=== PATIENT | female | born 1965 | race Caucasian/White ===

== ENCOUNTER → 2016-12-31 | Outpatient (CLI) | payer OTHER, MEDICAID | LOC: BMCIMAGING 09:11 | PROVIDERS: ATTEND Registered Nurse General Practice | DX: M54.6 Pain in thoracic spine (principal); M43.14 Spondylolisthesis, thoracic region; M54.2 Cervicalgia ==

== ENCOUNTER → 2017-06-05 | Outpatient (CLI) | payer OTHER, MEDICAID | LOC: BMCIMAGING 12:44 | PROVIDERS: ATTEND Registered Nurse General Practice | DX: Z12.31 Encounter for screening mammogram for malignant neoplasm of breast (principal) | CPT/HCPCS: G0202 ==

== ENCOUNTER 2017-11-07 07:08 | Inpatient (IN) | payer OTHER, MEDICAID ==
[2017-11-07] MEDS ORDERED: NS 1,000 ML IV ONE ×3 (07:16→14:19)
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
[2017-11-07] MEDS ORDERED: IOPAMIDOL (ISOVUE-300) 100 ML BTL ONE (07:20)
[2017-11-07 07:53] LABS: PLATELET COUNT 115 10^3/uL (150-400)
[2017-11-07 08:07] LABS: PROTIME(PATIENT) 13.4 SEC (12.0-15.0)
[2017-11-07] MEDS ORDERED: LORazepam 2 MG/ML INJ IVP ONE (08:09)
[2017-11-07] MEDS ORDERED: ceFAZolin 2 GM/DEXTROSE 100 ML IV ONE (09:00)
[2017-11-07] MEDS ORDERED: MANNITOL 25% 12.5 GM/50 ML VIAL IVP ONE (09:10)
--- NOTE | 2017-11-07 09:10 | CPEKG ---
Heart Rate: 102 RR Interval: 588 P-R Interval: 208 QRSD Interval: 74 QT Interval: 400 QTC Interval: 522 P [place]: 2 QRS [place]: 55 T Wave [place]: 78 EKG Severity - ABNORMAL ECG - EKG Impression: SINUS TACHYCARDIA EKG Impression: FIRST DEGREE AV BLOCK EKG Impression: PROLONGED QT INTERVAL Electronically Signed By: Nathan Phelps 07-Nov-2017 15:47:05
[2017-11-07] MEDS ORDERED: levETIRAcetam 1000MG/NACL 100 ML IV ONE (09:12)
[2017-11-07] MEDS ORDERED: ONDANSETRON 4 MG/2 ML VIAL IVP ONE (09:12)
[2017-11-07] MEDS ORDERED: PANTOPRAZOLE SODIUM 40 MG VIAL IVP ONE (09:13)
[2017-11-07] MEDS ORDERED: THROMBIN (BOVINE) 5,000 UNIT VIAL TP ONE (09:14)
[2017-11-07] MEDS ORDERED: MANNITOL 20% 100 GM/500 ML BAG IV ONE (09:14)
[2017-11-07] MEDS ORDERED: BUPIVACAINE 0.25% 30 ML SDV ONE (09:14)
[2017-11-07] MEDS ORDERED: GENTAMICIN SULFATE 80 MG/2 ML VIAL ONE ×2 (09:14→09:15)
[2017-11-07] MEDS ORDERED: CHLORHEXIDINE GLUC HIBICLENS 118 ML BTL TP ONE (09:15)
[2017-11-07] MEDS ORDERED: TDAP ADULT 0.5 ML INJ (BOOSTRIX) IM ONE (09:15)
[2017-11-07] MEDS ORDERED: PROPOFOL/EMULSION 500 MG/50 ML BOTTLE IV ONE ×3 (09:18→11:52)
[2017-11-07] MEDS ORDERED: THROMBIN (BOVINE) 20,000 UNIT VIAL TP ONE (09:23)
[2017-11-07] MEDS ORDERED: TRANEXAMIC ACID 1,000 MG in NS 500 ML IV ONE (09:24)
[2017-11-07] MEDS ORDERED: TRANEXAMIC ACID 1,000 MG in NS 100 ML IV ONE (09:24)
[2017-11-07] MEDS ORDERED: fentaNYL 100 MCG/2 ML INJ ONE (09:29)
[2017-11-07] MEDS ORDERED: ceFAZolin 2 GM/SWFI 2 GM/20 ML SYR IVP ONE (09:30)
[2017-11-07] MEDS ORDERED: SURGIFLO MATRIX KIT WITH THROMBIN 8ml TP ONE (09:44)
[2017-11-07] MEDS ORDERED: PHENYLEPHRINE HCL 100 MCG/ML SYR ONE (09:52)
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
--- NOTE | 2017-11-07 10:21 | PDANEPAE ---
ANE History of Present Illness 52 year old female found down with high blood EtoH level, subdural hematoma. ANE Past Medical History - Cardiovascular History Hx Hypertension: Yes - Pulmonary History Pulmonary History Comment: unknown ANE Review of Systems Review of Systems: ANE Patient History - Allergies Allergies/Adverse Reactions: erythromycin base [Erythromycin Base] Allergy (Verified 03/15/10 13:03) - Home Medications Home medications: home medication list seen and reviewed Home Medications: NK [No Known Home Meds] 11/07/17 [Last Taken Unknown] - NPO status NPO Status: no food or drink >8 hours - Anes Hx Anes Hx: no prior problems - Smoking Hx Smoking Status: Unknown if ever smoked Marijuana use: No - Alcohol Use Alcohol Use: None - Family Anes Hx Family Anes Hx: neg - N/A ANE Labs/Vital Signs - Labs Result Diagrams: 11/07/17 07:35 11/07/17 07:35 - Vital Signs Vital Signs: reviewed preoperatively; see RN documention for details Blood Pressure: 94/56 Heart Rate: 90 Respiratory Rate: 16 O2 Sat (%): 95 Height: 154.94 cm Weight: 65.771 kg ANE Physical Exam - ASA Status ASA Status: IV, E ANE Anesthesia Plan Anesthesia Plan: general endotracheal anesthesia Lines/Monitors: arterial line Total IV Anesthesia: No Urgent/Emergent Case: David alexander completed preop but documented later for safe timely pt care (This evaluation performed after the case as surgical intervention was emergent.)
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
[2017-11-07] MEDS ORDERED: BACITRACIN ZINC 14.2 GM OINTTUBE TP ONE (10:39)
[2017-11-07] MEDS ORDERED: MAGNESIUM HYDROXIDE 30 ML UDCUP PO PRN (11:54)
[2017-11-07] MEDS ORDERED: ONDANSETRON 4 MG/2 ML VIAL IVP PRN (11:54)
[2017-11-07] MEDS ORDERED: LACTULOSE 20 GM/30 ML UDCUP PO PRN (11:54)
[2017-11-07] MEDS ORDERED: niCARdipine/NACL 200 ML IV PRN (11:54)
[2017-11-07] MEDS ORDERED: ACETAMINOPHEN 325 MG TAB PO PRN (11:54)
[2017-11-07] MEDS ORDERED: BISACODYL 10 MG SUPP PR PRN (11:54)
[2017-11-07] MEDS ORDERED: POLYETHYLENE GLYCOL 3350 17 GM PKT PO PRN (11:54)
[2017-11-07] MEDS ORDERED: NS W/ 20 KCl/L 1,000 ML IV SCH (12:00)
[2017-11-07] MEDS ORDERED: LORazepam 2 MG/ML INJ IVP PRN (12:02)
[2017-11-07] MEDS ORDERED: ALBUMIN 5% 250 ML BOTTLE IV ONE ×2 (12:03→12:39)
[2017-11-07] MEDS ORDERED: PHENYLEPHRINE HCL 100 MCG/ML SYR IVP PRN (13:40)
[2017-11-07] MEDS ORDERED: epHEDrine SULFATE 10 MG/ML SYR IVP PRN (13:40)
[2017-11-07] MEDS ORDERED: PROMETHAZINE HCL 25 MG/ML INJ IVP PRN (13:40)
[2017-11-07] MEDS ORDERED: NALOXONE HCL 0.4 MG/ML INJ IVP PRN (13:40)
[2017-11-07] MEDS ORDERED: fentaNYL 100 MCG/2 ML INJ IVP PRN (13:40)
[2017-11-07] MEDS ORDERED: NS 500 ML IV PRN (13:40)
--- NOTE | 2017-11-07 13:48 | POSTOPPROG ---
Post Op Note Date of Operation: 11/07/17 Surgeon: Jones Tineo Card Scraper: Greg Mccain PA-C Anesthesia: GET(General Endotracheal), Local (Specify) Pre-op Diagnosis: Left subdural hematoma with brain compression Post-op Diagnosis: Same Indication: Decreased consciousness with traumatic subdural hematoma Procedure: Left craniotomy for evacuation subdural hematoma; EVD; laceration repair Findings: Brain well decompressed after hematoma evacuation Inf/Abcess present in the surg proc area at time of surgery?: No Depth: Organ Space EBL: 50-100 Complications: None Drains: Mo Myers (Subgaleal), Other (External ventricular drain) Specimen(s): None
--- NOTE | 2017-11-07 13:52 | SOAPPROG ---
SOAP Progress Note Assessment/Plan: Assessment: Felicitas is doing well s/p left craniotomy for evacuation subdural hematoma and left frontal EVD placement. EVD is working tenuously and may be obstructed. She is hypotensive and tachycardic and does not have sufficient peripheral IV access. Plan: Close neuro monitoring in ICU Remain intubated CT head JANES to assess EVD and subdural evacuation Dr. Joseph is placing central line for resuscitation and pressors C-collar at all times EVD open at 10 mm Hg PRANAY to full bulb suction 11/07/17 13:48 Subjective: Intubated and nonverbal Objective: Vital Signs Temp Pulse Resp BP Pulse Ox 35.1 C L 90 16 94/56 L 95 11/07/17 12:12 11/07/17 13:31 11/07/17 13:31 11/07/17 13:31 11/07/17 13:31 PT 13.4 SEC (12.0-15.0) 11/07/17 07:35 INR 1.00 (0.83-1.16) 11/07/17 07:35 Opens eyes to voice, follows commands intermittently, intubated (GCS [id number] = 10T) Anisocoria with left pupil 7 mm and right pupil 3 mm LEVIN symmetrically, spontaneously and to command EVD with sluggish backflow when raised, but not flowing forward - Pending Discharge Pending Discharge Within 24 Hours: No Pending Discharge Within 48 Hours: No ICD10 Worksheet Patient Problems: Problems Problem Status Onset Alcohol intoxication Acute Hypothermia Acute Subdural hematoma Acute
[2017-11-07] MEDS ORDERED: NS 500 ML IV ONE ×3 (14:18→15:47)
[2017-11-07] MEDS ORDERED: PHENYLEPHRINE HCL 50 MG in NS 250 ML IV SCH (14:30)
[2017-11-07] MEDS ORDERED: SODIUM BICARBONATE 50 MEQ/50 ML SYR IVP ONE ×4 (14:44→18:00)
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
[2017-11-07] MEDS: fentaNYL/NACL 100 ML IV SCH (14:52)
[2017-11-07] MEDS: PROPOFOL/EMULSION 100 ML IV SCH (14:52)
[2017-11-07] MEDS: SUCRALFATE 1 GM/10 ML UDCUP PO SCH ×2 (14:52→21:01)
[2017-11-07] MEDS: ACETAMINOPHEN 500 MG TAB PO SCH ×2 (14:52→21:02)
[2017-11-07] MEDS ORDERED: PROTOCOL POTASSIUM 1 DOSE MISC PRN (15:27)
[2017-11-07] MEDS ORDERED: PROTOCOL K PHOSPHATE 1 DOSE IV PRN (15:27)
[2017-11-07] MEDS ORDERED: PROTOCOL MAGNESIUM 1 DOSE IV PRN (15:27)
[2017-11-07] MEDS ORDERED: PROTOCOL CALCIUM 1 DOSE IV PRN (15:27)
[2017-11-07] MEDS ORDERED: ALBUMIN 5% 500 ML IV ONE ×2 (15:39→16:45)
--- NOTE | 2017-11-07 16:03 | PDMN ---
Medical Necessity Medical necessity: Pt meets IP criteria per MD; est los >2 mn for eval/tx of a skull fx, scalp laceration, subdural hematoma, multiple contusions & hypothermia ; pt unresponsive; admit for craniotomy, intubation & close neuro monitoring; hx legally blind, TBI, alcoholism; per H&P & order 11/07/17
[2017-11-07] MEDS ORDERED: LIDOCAINE 1% 300 MG/30 ML SDV ONE (17:15)
[2017-11-07] MEDS ORDERED: CALCIUM GLUCONATE 50 ML IV ONE (17:22)
[2017-11-07 17:27] LABS: PLATELET COUNT 52 10^3/uL (150-400)
[2017-11-07] MEDS ORDERED: D50W 25 GM/50 ML VIAL ONE (17:27)
[2017-11-07] MEDS ORDERED: CALCIUM GLUCONATE 1 GM in D5W 50 ML IV ONE (17:30)
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
[2017-11-07] MEDS ORDERED: D50W 25 GM/50 ML SYR IVP PRN (17:52)
[2017-11-07] MEDS: ceFAZolin 2 GM/SWFI 2 GM/20 ML SYR IVP SCH (18:16)
[2017-11-07] MEDS: LORazepam 2 MG/ML INJ IVP SCH (18:16)
[2017-11-07] MEDS: D5W NS 1,000 ML IV SCH (18:16)
--- NOTE | 2017-11-07 19:40 | GOP ---
[f rep st] OPERATIVE REPORT DATE OF OPERATION: SURGEON: Artie Joseph MD PREOPERATIVE DIAGNOSIS: Severe intracranial injury with hypovolemic shock. POSTOPERATIVE DIAGNOSIS: Severe intracranial injury with hypovolemic shock. PROCEDURE PERFORMED: Placement of central line for fluid resuscitation, monitoring, and pressor admi nistration if necessary. FINDINGS: Severe intracranial injury with hypovolemic shock. DESCRIPTION OF PROCEDURE: The patient was placed in the Trendelenburg position on her ICU bed. A lockhart rgical time-out had been carried out and agreed to by all members of the operative team. A sterile f ield was developed on the right chest and neck. The skin was anesthetized with 1% Xylocaine (1 cc us ed). A thin wall needle was carefully passed below the clavicle and into the subclavian vein on the 1st pass. It was rotated clockwise 90 degrees. A guidewire was carefully advanced. The needle was removed over the guidewire. The skin puncture site was carefully enlarged with an 11 blade. A dilat or was carefully passed and removed. A flushed triple-lumen catheter was passed to the 15 cm marilee. The guidewire was removed. The blue and white hubs had been previously flushed. The brown hub was n ow flushed. It was secured in place with silk suture. It was also secured to the chest wall. An an timicrobial dressing was placed. Tegaderm was used. The patient tolerated the procedure well. A [facility] x-ray showed the line to be in good position. /[id number]/MODL
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
[2017-11-07] MEDS ORDERED: SENNOSIDES/DOCUSATE SODIUM TAB PO SCH (21:00)
[2017-11-07] MEDS: FAMOTIDINE 20 MG/NACL 50 ML IV SCH (21:01)
[2017-11-07] MEDS: CHLORHEXIDINE GLUCONATE 15 ML UDL PO SCH (21:01)
[2017-11-07] MEDS: levETIRAcetam 750 MG in NS (SYRINGE) 50 ML IV SCH (21:10)
[2017-11-07 21:47] LABS: INR 1.43 (0.83-1.16); PROTIME(PATIENT) 17.6 SEC (12.0-15.0)
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
[2017-11-08] MEDS: LORazepam 2 MG/ML INJ IVP SCH ×4 (00:56→18:21)
[2017-11-08] MEDS: PROPOFOL/EMULSION 100 ML IV SCH ×2 (00:57→10:27)
[2017-11-08] MEDS: ceFAZolin 2 GM/SWFI 2 GM/20 ML SYR IVP SCH (03:19)
[2017-11-08] MEDS: SUCRALFATE 1 GM/10 ML UDCUP PO SCH ×2 (03:19→08:30)
[2017-11-08 04:41] LABS: PLATELET COUNT 52 10^3/uL (150-400)
[2017-11-08 04:51] LABS: INR 1.31 (0.83-1.16); PROTIME(PATIENT) 16.5 SEC (12.0-15.0)
[2017-11-08] MEDS: fentaNYL/NACL 100 ML IV SCH ×2 (05:36→18:22)
[2017-11-08] MEDS: D5W NS 1,000 ML IV SCH ×2 (06:32→18:40)
[2017-11-08] MEDS: ACETAMINOPHEN 500 MG TAB PO SCH ×2 (06:32→14:15)
--- NOTE | 2017-11-08 08:18 | NEUSURGPN ---
Date of Surgery: 11/07/17 Post Op Day: 1 Assessment/Plan: 52 year old s/p left craniotomy for evacuation subdural hematoma and left frontal EVD placement Plan: Close neuro monitoring in ICU Remain intubated, patient has scar from previous trach and was a difficult intubation for surgery CT head this am shows increase in SDH and shift, ICP's stable less than 10 Will continue to follow ICPs closely Dr Tineo will see patient today C-collar at all times EVD open at 10 mm Hg PRANAY to full bulb suction Patient seen by Dr Salas and discussed with Dr Tineo Please call neurosurgery with any questions/concerns Subjective: No new events, patient intubated Objective: Patient intubated, sedation currently off Pupils: OS1 OD3 reactive Does not move BUE, BLE to painful stim Opens eyes to command EVD patent, draining approx 10ml/hr ICPs less than 10 Neuro Check Frequency: per routine Urinary Catheter in Place: Yes Urinary Catheter Indication: Accurate I & O Required Catheter Insertion Date: 11/07/17 - Physician Discussed Patient with Dr.: Other (Dr Tineo) Patient Seen by : Jos[facility] Neurosurgery Physical Exam - Vitals, I&O, Labs I and O 11/07/17 11/08/17 11/09/17 05:59 05:59 05:59 Intake Total 5641 Output Total 3358 10 Balance 2283 -10 Weight 79.3 kg Intake: IV Infused (ml) 5641 Albumin 5% 500 ml @ As 1000 Directed IV ONCE ONE Rx#: [id number] D5w Ns 1,000 ml @ 100 mls 1564 /hr IV CONT CALLIE Rx#: [id number] NS W/ 20 KCl/L 1,000 ml @ 367 150 mls/hr IV CONT CALLIE Rx#:[id number] Ns 1,000 ml @ Wide Open 2500 IV ONCE ONE Rx#: [id number] Propofol/Emulsion 100 ml 127 @ Per Protocol IV CONT CALLIE Rx#:[id number] fentaNYL/NACL 100 ml @ 83 Per Protocol IV CONT CALLIE Rx#:[id number] Output: Urine (ml) 2925 Catheter 2925 OG Tube Output (ml) 50 Large Bore (>12 Romansh) 50 Oral Stomach CSF Drainage Amount 153 10 Left Ventriculostomy 0 Right Ventriculostomy 153 10 PRANAY Drain Output (ml) 230 Left Head Mo Myers 230 Vital Signs Temp Pulse Resp BP Pulse Ox 36.6 C 93 20 123/73 H 96 11/08/17 08:00 11/08/17 08:00 11/08/17 08:00 11/08/17 08:00 11/08/17 08:00 Laboratory Results 11/08/17 04:20 11/08/17 04:20 ICD10 Worksheet Patient Problems: Problems Problem Status Onset Alcohol intoxication Acute Hypothermia Acute Subdural hematoma Acute
[2017-11-08] MEDS ORDERED: CALCIUM GLUCONATE 50 ML IV ONE (08:21)
[2017-11-08] MEDS ORDERED: MAGNESIUM SULF 2 GM/WATER 50 ML IV ONE (08:21)
[2017-11-08] MEDS ORDERED: MAGNESIUM HYDROXIDE 30 ML UDCUP TUBE PRN (08:30)
[2017-11-08] MEDS ORDERED: CALCIUM GLUCONATE 1 GM in D5W 50 ML IV ONE (08:30)
[2017-11-08] MEDS: FAMOTIDINE 20 MG/NACL 50 ML IV SCH (08:30)
[2017-11-08] MEDS ORDERED: POLYETHYLENE GLYCOL 3350 17 GM PKT TUBE PRN (08:30)
[2017-11-08] MEDS ORDERED: LACTULOSE 20 GM/30 ML UDCUP TUBE PRN (08:30)
[2017-11-08] MEDS: CHLORHEXIDINE GLUCONATE 15 ML UDL PO SCH (08:35)
[2017-11-08] MEDS: SUCRALFATE 1 GM/10 ML UDCUP TUBE SCH ×2 (08:44→14:15)
[2017-11-08] MEDS ORDERED: THIAMINE HCL 500 MG in NS 500 ML IV SCH (09:00)
[2017-11-08] MEDS ORDERED: SENNOSIDES 17.6 MG/10 ML UDL TUBE SCH (09:00)
[2017-11-08] MEDS: levETIRAcetam 750 MG in NS (SYRINGE) 50 ML IV SCH (09:41)
[2017-11-08] MEDS ORDERED: PETROLAT,WHT/MIN OIL/SOD CHL 3.5 GM OPHT.OINT EACHEYE SCH (12:30)
[2017-11-08] MEDS ORDERED: PETROLAT,WHT/MIN OIL/SOD CHL 3.5 GM OPHT.OINT EACHEYE PRN (12:30)
--- NOTE | 2017-11-08 13:55 | TRAUMAPNT ---
Trauma Tertiary Progress Note New Findings: No new findings Assessment/Plan: PAD#1 11/08/2017 Assessment: Daughter (BILLY Moraes) requests a DNR status VSS Neurologic status: Will localize to pain with left side. Occasionally withdraws RLE to pain. Not seen to be moving RUE. CT stills shows shift. New ventriculostomy is draining. ICP ~ 6. On propofol/fentanyl drips. Appreciate Neurosurgery input. Volume status - Lactate .8, Hct (after two units) is up to 23. CXR shows cephalization of vasculature, CVP is 5. Will not diurese today but may need to adress that in the near future. GI bleed - Coffee grounds NG drainage has resolved. Carafate and pepcid will be continued for the moment. Currently checking a 4 hour residual in anticipation of tube feeds tomorrow. Low glucose - D50 given yesterday. Fluids shifted to D5NS with KCl yesterday. Glucose 168 this AM. Will remove glucose. Respiratory - stable on vent; TV = 450, SIMV = 20, Peep 5, FiO2 .4, Pressure support = 7; pH 7.4 CO2 = 31, O2= 79, BE improved to -4.9 Plan: Per Neurosurgery Consider diuresis as capillary leak seals Consider starting tube feeds tomorrow if gastric residuals ok Continue stress ulcer prophylaxis Follow glucose Not yet set for extubation. Watch for ETOH withdrawal Subjective: intubated, minimally responsive Objective: Vital Signs Temp Pulse Resp BP Pulse Ox 36.7 C 81 20 131/74 H 97 11/08/17 12:00 11/08/17 13:00 11/08/17 13:00 11/08/17 13:00 11/08/17 13:00 Laboratory Results 11/08/17 04:20 11/08/17 04:20 11/07/17 11/08/17 11/09/17 05:59 05:59 05:59 Intake Total 5641 Output Total 3358 47 Balance 2283 -47 PT 16.5 SEC (12.0-15.0) H 11/08/17 04:20 INR 1.31 (0.83-1.16) H 11/08/17 04:20 - C-Spine Clearance Cervical Spine Cleared: No Physical Exam - Physical Exam General Appearance: obtunded, other (Intubated) EENT: ET tube Neck: other (cannot clear yet) Respiratory: lungs clear, normal breath sounds, other (CXR shows cephalization of vessels) Cardiac/Chest: regular rate, rhythm Abdomen: non-tender, soft, distended, other (hypoactive bowel sounds) Pelvic Exam: deferred Rectal: deferred Back: Normal inspection Skin: normal color, warm/dry Neuro/Psych: other (Opens eyes and localizes when lacralube placed. Localized LUE and LLE with sternal rub. Intermittantly withdraws RLE to pain. I have not seen her move RUE to pain.) Time Spent w/Patient (minutes): 60
--- NOTE | 2017-11-08 14:52 | POSTANESTH ---
Post Anesthetic Evaluation Cardiovascular Status: Similar to Pre-Op Cond, Tx Hyper/Hypo-tension Respiratory Status: Other, See Comment (Remains critically ill in ICU on ventilator) Level of Consciousness/Mental Status: Unconscious (Sedated on ventilator in ICU) Complications Possibly Related to Anesthesia: None Noted
--- NOTE | 2017-11-08 15:34 | PDINTPN ---
Inside Sales Lead Progress Note Assessment/Plan: Assessment: Status post severe closed head injury with basilar skull fracture, status post craniotomy with drainage of subdural hematoma with shift. Has enlarging intraparenchymal bleeds on CT today. On Keppra. ICP 12. CVP 7. Prognosis guarded secondary to the extent of her injury in the setting of severe TBI 8 years ago and chronic underlying neurologic sequela from that. Acute and Chronic alcohol abuse: On scheduled Ativan. Getting thiamin. CIWA cannot be assessed on the ventilator. Acute respiratory failure. Secondary to 1. On 40%, stable. No definite evidence of aspiration at this time. Surveillance sputum culture ordered. Will try to keep pCO2 approximately 35. History of hypertension. Blood pressure is fine off presumed outpatient medications GI prophylaxis: On Pepcid. DVT prophylaxis: SCDs. Anticoagulation contraindicated. Advanced directives: Has a most form. Her daughter who is medical power of employee benefits attorney request that she be DNR. Nutrition: None at this time. Will plan on starting tube feedings tomorrow. Anemia: Status post 2 units of blood yesterday. Hematocrit stable today at 24. No evidence of ongoing significant bleeding. Coffee-grounds from NG on admission appeared to have resolved. Plan: Supportive care and ventilatory support will be maintained. Current medications will be continued. ICP and CVP to be monitored. Continue intravenous fluids. Can stop D5 and go to normal saline. Gentle diuresis as tolerated. Follow sodium, chemistries, CBC, ABG, chest x-ray. Neurosurgery and Trauma surgery to continue to follow. 1 hr of critical care time spent directly with the patient. Discussed with the patient's daughter, RT, neuro surgery, trauma surgery, nursing, and the ICU multi disciplinary team. Subjective: Sedated, on the ventilator, unresponsive, moves R side spontaneously Objective: Vital Signs Temp Pulse Resp BP Pulse Ox 36.6 C 85 20 122/67 H 94 11/08/17 15:00 11/08/17 15:00 11/08/17 15:00 11/08/17 15:00 11/08/17 15:00 Laboratory Results 11/08/17 04:20 11/08/17 04:20 11/07/17 11/08/17 11/09/17 05:59 05:59 05:59 Intake Total 5641 Output Total 3358 64 Balance 2283 -64 PT 16.5 SEC (12.0-15.0) H 11/08/17 04:20 INR 1.31 (0.83-1.16) H 11/08/17 04:20 Laboratory Tests 11/08/17 11/08/17 11/08/17 04:20 04:20 04:20 pCO2 31 L pO2 79 H ABG pH 7.40 ABG O2 Saturation 96 H ABG Lactic Acid 0.8 D O2 Concentration % 40 Actual Respiration Rate 20 Tidal Volume 450 PEEP 5 Pressure Support 7 Calcium 7.1 L Ionized Calcium 1.08 L Phosphorus 2.9 Magnesium 1.4 L CXR: Significant increase in bilateral pulmonary infiltrates and effusions, consistent with volume overload from fluid resuscitation. New since yesterday. Lines and tubes in good position. Physical Exam - Physical Exam General Appearance: no apparent distress, other (Intubated, on the ventilator, OG, PRANAY drain, ICP monitor), No alert EENT: ET tube (Right greater than left, unchanged, chronic), No PERRL/EOMI Neck: other (Hard collar in place), No normal inspection Respiratory: lungs clear, decreased breath sounds (At the bases) Cardiac/Chest: regular rate, rhythm, other (Right subclavian triple-lumen in place) Abdomen: soft, No normal bowel sounds (Decreased, few present), No non-tender ( Can't assess) Pelvic Exam: other (Kemp catheter in place. Good urine output but input greater than output 2 L over the last 24 hr) Extremities: pedal edema (Trace) Neuro/Psych: cognition abnormalities, No no motor/sensory deficits (Moving right side spontaneously, not left) ICD10 Worksheet Patient Problems: Problems Problem Status Onset Subdural hematoma Acute Hypothermia Acute Alcohol intoxication Acute
[2017-11-08] MEDS ORDERED: FUROSEMIDE 20 MG/2 ML VIAL IVP ONE (15:58)
[2017-11-08 16:07] VITALS: RESP 16
--- NOTE | 2017-11-08 16:59 | ASMTCMCOM ---
CM Note CM Note Notes: Patient's daughter Aleisha asked to speak with me regarding her mother's condition. She and her brother Lucien are despondant over their mother's condition. They are grappling with whether she is being kept alive unnecessarily, only to be destined to a life she wouldn't want. Per their history, she has been declining quite profoundly in the last year; drinking heavily, not taking care of herself, and making comments and doing things suggestive of wanting to . Apparently, she had made an appointment to have her dog put down, and her dog was not ill or injured. They feel that, even it patient makes a "meaningful" recovery, it still won't have meaning for her. I explained that our team is honest in their assessment of people's recovery. I reiterated what Dr Saini said in rounds, which is that it's still very early in patient's hospitalization to have all the information necessary to make a decision in whether to withdraw care. I explained that each lab test, diagnostic image, and neuro exam are being compiled to help us make the best decision. The family understands this, yet they are still fairly certain that patient does not have a chance at a meaningful life. I offered a family meeting, but in hindsight, I think that the family needs to speak with the physician(s) again to be given a better timeframe of when they can begin a conversation about withdrawing care. I spoke with Dr Saini about the above, and he will see the family shortly. If Palliative Care or a family meeting are desired or warranted, we can help arrange that in the coming days. Date Signed: 11/08/2017 04:58 PM Electronically Signed By:Regi Herrera RN
[2017-11-08] MEDS ORDERED: FAMOTIDINE 20 MG TAB TUBE SCH (21:00)
[2017-11-08] MEDS ORDERED: SCOPOLAMINE HYDROBROMIDE 1 MG/3 DAYS PATCH TD PRN (21:00)
[2017-11-08] MEDS ORDERED: LORazepam 2 MG/ML INJ IVP PRN (21:00)
[2017-11-08] MEDS ORDERED: ONDANSETRON 4 MG/2 ML VIAL IVP PRN (21:00)
[2017-11-08] MEDS ORDERED: METOCLOPRAMIDE 10 MG/2 ML VIAL IVP PRN (21:00)
[2017-11-08] MEDS ORDERED: PROTOCOL POTASSIUM 1 DOSE MISC PRN (23:20)
[2017-11-08] MEDS ORDERED: PROTOCOL MAGNESIUM 1 DOSE IV PRN (23:20)
[2017-11-08] MEDS ORDERED: PROTOCOL CALCIUM 1 DOSE IV PRN (23:20)
[2017-11-08] MEDS ORDERED: PROTOCOL K PHOSPHATE 1 DOSE IV PRN (23:20)
[2017-11-09 00:25] LABS: INR 1.08 (0.83-1.16); PROTIME(PATIENT) 14.2 SEC (12.0-15.0)
[2017-11-09 00:26] LABS: PLATELET COUNT 63 10^3/uL (150-400)
[2017-11-09] MEDS: PROPOFOL/EMULSION 100 ML IV SCH ×2 (01:24→14:05)
[2017-11-09] MEDS ORDERED: POTASSIUM Cl (KCl) 50 ML IV SCH ×2 (01:45→07:00)
[2017-11-09] MEDS ORDERED: POTASSIUM Cl (KCl) 100 ML IV SCH (02:00)
[2017-11-09] MEDS: DEXAMETHASONE 4 MG/ML VIAL IVP SCH ×3 (02:05→12:01)
[2017-11-09] MEDS ORDERED: POTASSIUM Cl (KCl) 10 MEQ in D5W 50 ML IV SCH (04:00)
[2017-11-09 06:15] LABS: PLATELET COUNT 62 10^3/uL (150-400)
[2017-11-09 06:23] LABS: INR 1.1 (0.83-1.16); PROTIME(PATIENT) 14.4 SEC (12.0-15.0)
[2017-11-09] MEDS: POTASSIUM Cl (KCl) 10 MEQ in D5W 50 ML IV SCH ×3 (07:30→08:08)
[2017-11-09] MEDS: fentaNYL/NACL 100 ML IV SCH ×2 (07:30→17:19)
--- NOTE | 2017-11-09 07:59 | NEUSURGPN ---
Assessment/Plan: 52 yo F s/p crani for L SDH Pt made comfort care, [facility] on board NS will sign off Catheter Insertion Date: 11/07/17 Neurosurgery Physical Exam - Vitals, I&O, Labs I and O 11/08/17 11/09/17 11/10/17 05:59 05:59 06:59 Intake Total 5641 1748 Output Total 3388 1410 15 Balance 2253 338 -15 Weight 79.3 kg 79.3 kg Intake: IV Infused (ml) 5641 1748 Albumin 5% 500 ml @ As 1000 Directed IV ONCE ONE Rx#: [id number] D5w Ns 1,000 ml @ 100 mls 1564 1591 /hr IV CONT CALLIE Rx#: [id number] NS W/ 20 KCl/L 1,000 ml @ 367 150 mls/hr IV CONT CALLIE Rx#:[id number] Ns 1,000 ml @ Wide Open 2500 IV ONCE ONE Rx#: [id number] Propofol/Emulsion 100 ml 127 74 @ Per Protocol IV CONT CALLIE Rx#:[id number] fentaNYL/NACL 100 ml @ 83 83 Per Protocol IV CONT CALLIE Rx#:[id number] Output: Urine (ml) 2955 1275 15 Catheter 2955 1275 15 OG Tube Output (ml) 50 Large Bore (>12 Pashto) 50 Oral Stomach CSF Drainage Amount 153 90 Left Ventriculostomy 0 Right Ventriculostomy 153 90 PRANAY Drain Output (ml) 230 45 Left Head Mo Myers 230 45 Microbiology 11/08/17 15:50 - Final Sputum, Induced/Suctioned Vital Signs Temp Pulse Resp BP Pulse Ox 37.1 C 77 16 117/75 95 11/09/17 05:00 11/09/17 07:34 11/09/17 07:34 11/09/17 07:34 11/09/17 07:34 Laboratory Results 11/09/17 06:00 11/09/17 06:00 ICD10 Worksheet Patient Problems: Problems Problem Status Onset Alcohol intoxication Acute Hypothermia Acute Subdural hematoma Acute
[2017-11-09] MEDS ORDERED: CALCIUM GLUCONATE 1 GM in D5W 50 ML IV ONE (08:09)
--- NOTE | 2017-11-09 08:10 | SOAPPROG ---
SOAP Progress Note Assessment/Plan: Assessment: ON COMFORT CARE AFTER HEAD INJURY CXR BILATERAL MODERATE EFFUSION Plan:PROCEED WITH DCD 11/09/17 08:08 Objective: Vital Signs Temp Pulse Resp BP Pulse Ox 36.8 C 80 16 126/79 H 95 11/09/17 08:00 11/09/17 08:00 11/09/17 08:00 11/09/17 08:00 11/09/17 08:00 Microbiology 11/08/17 15:50 - Final Sputum, Induced/Suctioned Laboratory Results 11/09/17 06:00 11/09/17 06:00 11/08/17 11/09/17 11/10/17 05:59 05:59 06:59 Intake Total 5641 1748 Output Total 3388 1410 55 Balance 2253 338 -55 PT 14.4 SEC (12.0-15.0) 11/09/17 06:00 INR 1.10 (0.83-1.16) 11/09/17 06:00 ICD10 Worksheet Patient Problems: Problems Problem Status Onset Alcohol intoxication Acute Hypothermia Acute Subdural hematoma Acute
--- NOTE | 2017-11-09 09:38 | PDINTPN ---
Solar Sales Estimator Progress Note Assessment/Plan: Assessment: Status post severe closed head injury with basilar skull fracture, status post craniotomy with drainage of subdural hematoma with shift. Has enlarging intraparenchymal bleeds on CT today. On Keppra. ICP 12. CVP 7. Prognosis poor secondary to the extent of her injury in the setting of severe TBI 8 years ago and chronic underlying neurologic sequela from that. Family requested withdrawal of care at last night. This is an appropriate decision. For donation after cardiac . This is tentatively scheduled for this afternoon. Acute and Chronic alcohol abuse: On scheduled Ativan. Getting thiamin. CIWA cannot be assessed on the ventilator. Acute respiratory failure. Secondary to 1. On 40%, stable. No definite evidence of aspiration at this time. Surveillance sputum culture ordered. Will continue appropriate ventilatory support until withdrawn from the ventilator later today.. History of hypertension. Blood pressures fine. GI prophylaxis: On Pepcid. DVT prophylaxis: SCDs. Anticoagulation contraindicated. Advanced directives: Has a most form. Her daughter who is medical power of access developer request that she be DNR, and has requested withdrawal of care. Please see the comments above.. Nutrition: N/A. Anemia: Status post 2 units of blood. Hematocrit stable today at 23. No evidence of ongoing significant bleeding. Coffee-grounds from NG on admission appeared to have resolved. Plan: Continue supportive care on the ventilator for now. Will look at donor [facility] protocols for donation after cardiac and follow their recommendations. We will plan on removing her from the ventilator in the operating room this afternoon. Will discuss this with family when they are in.. 30 min of critical care time spent directly with the patient. Discussed with nursing and RT. Subjective: Sedated, unresponsive. Family withdrew care last night. [facility]or [facility] involved. For donation after cardiac . Objective: Vital Signs Temp Pulse Resp BP Pulse Ox 36.8 C 76 16 126/79 H 96 11/09/17 08:00 11/09/17 09:00 11/09/17 09:00 11/09/17 09:00 11/09/17 09:00 Microbiology 11/08/17 15:50 - Final Sputum, Induced/Suctioned Laboratory Results 11/09/17 06:00 11/09/17 06:00 11/08/17 11/09/17 11/10/17 05:59 05:59 06:59 Intake Total 5641 1748 Output Total 3388 1410 77 Balance 2253 338 -77 PT 14.4 SEC (12.0-15.0) 11/09/17 06:00 INR 1.10 (0.83-1.16) 11/09/17 06:00 Laboratory Tests 11/08/17 11/08/17 11/09/17 04:20 04:20 06:00 PT INR APTT pCO2 31 L pO2 79 H ABG pH 7.40 ABG Lactic Acid 0.8 D O2 Concentration % 40 Actual Respiration Rate 20 Tidal Volume 450 PEEP 5 Pressure Support 7 Calcium 6.9 L Ionized Calcium Phosphorus 1.7 L Magnesium 1.9 Total Bilirubin 0.5 AST 44 ALT 37 Albumin 2.4 L 11/09/17 11/09/17 06:00 07:45 PT 14.4 INR 1.10 APTT 26.8 pCO2 pO2 ABG pH ABG Lactic Acid O2 Concentration % Actual Respiration Rate Tidal Volume PEEP Pressure Support Calcium Ionized Calcium 1.10 L Phosphorus Magnesium Total Bilirubin AST ALT Albumin CXR: Bilateral pleural effusions consistent with volume overload. Lines and tubes in good position. Physical Exam - Physical Exam General Appearance: unresponsive EENT: ET tube, other (OG to), No PERRL/EOMI Neck: normal inspection Respiratory: lungs clear (Anteriorly), decreased breath sounds (At bases), other (Central line right subclavian) Cardiac/Chest: regular rate, rhythm Abdomen: soft, No normal bowel sounds (Decreased) Pelvic Exam: other (Kemp catheter in place: Good urine output overnight with input slightly greater than output) Skin: normal color, warm/dry Extremities: pedal edema Neuro/Psych: cognition abnormalities (Unchanged. Will move left side spontaneously, weekly), No no motor/sensory deficits ICD10 Worksheet Patient Problems: Problems Problem Status Onset Subdural hematoma Acute Hypothermia Acute Alcohol intoxication Acute
[2017-11-09] MEDS ORDERED: K PHOS 10 MMOL in NS 250 ML IV ONE (12:00)
[2017-11-09 12:28] LABS: PLATELET COUNT 70 10^3/uL (150-400)
[2017-11-09 12:36] LABS: INR 1.11 (0.83-1.16); PROTIME(PATIENT) 14.5 SEC (12.0-15.0)
[2017-11-09] MEDS ORDERED: POTASSIUM Cl (KCl) 50 ML IV ONE (13:06)
[2017-11-09 18:14] LABS: PLATELET COUNT 67 10^3/uL (150-400)
[2017-11-09 18:17] LABS: INR 1.06 (0.83-1.16)
[2017-11-09] MEDS: LORazepam 2 MG/ML INJ IVP PRN ×2 (20:24→22:45)
[2017-11-09 21:01] VITALS: TEMP 98.8
[2017-11-09] MEDS ORDERED: HEPARIN 10,000 UNIT/10 ML MDV (1,000 UNIT/ML) IVP ONE (22:00)
[2017-11-09] MEDS ORDERED: HEPARIN 10,000 UNIT/10 ML MDV (1,000 UNIT/ML) ONE ×2 (22:10→22:11)
[2017-11-10] MEDS: fentaNYL/NACL 100 ML IV SCH (00:26)
[2017-11-10] MEDS: LORazepam 2 MG/ML INJ IVP PRN (00:27)
[2017-11-10] MEDS ORDERED: SCOPOLAMINE HYDROBROMIDE 1 MG/3 DAYS PATCH TD ONE (01:15)
[2017-11-10 04:54] VITALS: O2SAT 35
[2017-11-10 06:08] VITALS: BP 60/42; PULSE 131
[2017-11-10] MEDS ORDERED: GLYCOPYRROLATE 0.2 MG/1 ML VIAL IVP PRN (09:02)
--- NOTE | 2017-11-10 09:05 | TRAUMAPN ---
Trauma Progress Note Assessment/Plan: PAD#1 11/08/2017 Assessment: Daughter (BILLY Moraes) requests a DNR status VSS Neurologic status: Will localize to pain with left side. Occasionally withdraws RLE to pain. Not seen to be moving RUE. CT stills shows shift. New ventriculostomy is draining. ICP ~ 6. On propofol/fentanyl drips. Appreciate Neurosurgery input. Volume status - Lactate .8, Hct (after two units) is up to 23. CXR shows cephalization of vasculature, CVP is 5. Will not diurese today but may need to adress that in the near future. GI bleed - Coffee grounds NG drainage has resolved. Carafate and pepcid will be continued for the moment. Currently checking a 4 hour residual in anticipation of tube feeds tomorrow. Low glucose - D50 given yesterday. Fluids shifted to D5NS with KCl yesterday. Glucose 168 this AM. Will remove glucose. Respiratory - stable on vent; TV = 450, SIMV = 20, Peep 5, FiO2 .4, Pressure support = 7; pH 7.4 CO2 = 31, O2= 79, BE improved to -4.9 Plan: Per Neurosurgery Consider diuresis as capillary leak seals Consider starting tube feeds tomorrow if gastric residuals ok Continue stress ulcer prophylaxis Follow glucose Not yet set for extubation. Watch for ETOH withdrawal PAD#3 Assessment: Patient was moved to comfort care on 11/08. She went to the OR for possible DCD yesterday but she did not . Still has agonal respiration. Plan: Support family in this transition. Objective: Vital Signs Temp Pulse Resp BP Pulse Ox 37.1 C 131 H 16 60/42 L 35 L 11/09/17 20:00 11/10/17 06:00 11/09/17 21:00 11/10/17 05:00 11/10/17 04:00 Microbiology 11/08/17 15:50 - Final Sputum, Induced/Suctioned Laboratory Results 11/09/17 17:50 11/09/17 17:50 11/09/17 11/10/17 11/11/17 04:59 05:59 05:59 Intake Total Output Total Balance PT 14.0 SEC (12.0-15.0) 11/09/17 17:50 INR 1.06 (0.83-1.16) 11/09/17 17:50 - C-Spine Clearance Cervical Spine Cleared: No
[2017-11-10] MEDS ORDERED: THIAMINE HCL 100 MG TAB TUBE SCH (12:02)
--- NOTE | 2017-11-10 18:49 | GDS ---
[f rep st] DISCHARGE SUMMARY DATE OF : 11/10/2017. FINAL DIAGNOSIS: Severe closed head injury. HOSPITAL COURSE: The patient was a 52-year-old with a previous history of severe traumatic brain injury. She was admitted following a fall where she hit her head. She had evidence of severe intraparenchymal hemorrhage as well as subdural hematoma with shift. Subarachnoid hemorrhage was also present along the anterior temporal lobes bilaterally. Occipital fracture was noted. The patient was taken to the operating room for a craniotomy and drainage of the subdural hematoma. She had severe neurologic deficits, moving only her left side at times. She never regained consciousness. She was supported on the ventilator. The patient 's family, including her daughter the medical durable power of ip technology transactions attorney, on , requested comfort care only. In light of her very poor prognosis, this was felt to be appropriate by Neurosurgery as well as Trauma Surgery. It was elected to proceed with donation after cardiac . This was initially scheduled for the afternoon of 11/09, put off until the night. The patient was placed on comfort measures, taken to the operating room for possible donation and taken off the ventilator. However, she did not pass away within an hour. She thus did not meet criteria for donation after cardiac , and the patient was returned to the intensive care unit for comfort care post extubation. She was without pulse and respiration at 0945. She was pronounced . Family was at her bedside. /[id number]/MODL MTDD
== END 2017-11-10 10:00 | disposition expired | DRG 27 ==
LOC: EDUNIT# → F2N 13:24
PROVIDERS: ADMIT Surgery; ATTEND Surgery
DX: S02.11HA Other fracture of occiput, left side, initial encounter for closed fracture; T68.XXXA Hypothermia, initial encounter; W19.XXXA Unspecified fall, initial encounter; S01.01XA Laceration without foreign body of scalp, initial encounter; F10.220 Alcohol dependence with intoxication, uncomplicated; Y90.8 Blood alcohol level of 240 mg/100 ml or more; R40.2421 Glasgow coma scale score 9-12, in the field [EMT or ambulance]; K21.9 Gastro-esophageal reflux disease without esophagitis; I10 Essential (primary) hypertension; Z51.5 Encounter for palliative care; Z87.820 Personal history of traumatic brain injury; D64.9 Anemia, unspecified
CPT/HCPCS: 82947-QW; 96374; C1713; C1729; G0480; J0171; J0610; J0690; J1100; J1580; J1644; J1940; J1953; J2060; J2270; J2370; J2405; J2704; J3010; J3411; J3475; J3480; P9016; P9041; Q9967

== ENCOUNTER 2017-11-08 23:00 | Inpatient (IN) | payer OTHER | END 2017-11-10 00:13 | disposition E | DRG 951 | LOC: F2N 23:00 | PROVIDERS: ADMIT Surgery; ATTEND Surgery | DX: Z52.89 Donor of other specified organs or tissues (principal) | CPT/HCPCS: J0610; J0690; J1100; J1644; J2060; J2270; J2704; J3010; J3411; J3480 ==